=== PATIENT | male | born 1955 | race Two or more races ===

== ENCOUNTER 2020-09-11 20:52 | Emergency (ER) | payer OTHER, MEDICARE ==
[~2020-09-11] VITALS: Ht 160 cm; Wt 67.5 kg
--- NOTE | 2020-09-11 21:32 | NUR ---
pt in bed . interpation by son at bedside. states that "he got dizzy yesterday and its the same thing that happened when he had a stroke 3 years ago" pt in bed started piv. labs drawn
[2020-09-11 21:41] LABS: BASOPHILS % (AUTO) 0 % (0-1); EOSINOPHILS % (AUTO) 2 % (1-7); LYMPHOCYTES % (AUTO) 25 % (22-44); MEAN CORPUSCULAR HEMOGLOBIN 30.9 pg (27.5-34.5); MEAN CORPUSCULAR HGB CONC 34.8 g/dL (33.2-36.2); MEAN PLATELET VOLUME 8.8 fL (7.4-10.4); MONOCYTES % (AUTO) 8 % (2-9); NEUTROPHILS % (AUTO) 66 % (42-75); PLATELET COUNT 214 x10^3/uL (130-400); RED BLOOD COUNT 5.48 x10^6/uL (4.38-5.82); RED CELL DISTRIBUTION WIDTH 13.3 % (9.4-14.8)
--- NOTE | 2020-09-11 21:48 | NUR ---
pt back from ct.
[2020-09-11 21:49] LABS: MD NO
--- NOTE | 2020-09-11 21:50 | NUR ---
REPORT FROM MAGDA LAGOSCONSTRUCTION TRADES TEACHER OF CARE AT THIS TIME
[2020-09-11 21:51] LABS: ANION GAP 12 mmol/L (5-15); CALCIUM 9.6 mg/dL (8.5-10.1); CHLORIDE 106 mmol/L (98-107); CREATININE 0.92 mg/dL (0.7-1.3)
[2020-09-11 22:42] VITALS: BP 105/70
--- NOTE | 2020-09-11 22:43 | NUR ---
Patient/Caregiver given discharge instructions and they have confirmed that they understand the instructions. Patient ambulatory with steady gait.
== END 2020-09-11 22:51 | disposition home or self-care (01) ==
LOC: ED 22:45
DX: R42 Dizziness and giddiness (principal); R51.9 Headache, unspecified; I10 Essential (primary) hypertension; F17.200 Nicotine dependence, unspecified, uncomplicated; Z86.73 Personal history of transient ischemic attack (TIA), and cerebral infarction without residual deficits
CPT/HCPCS: 36415; 70450; 80048; 82040; 85025; 99284